=== PATIENT | male | born 1945 | race Two or more races ===

== ENCOUNTER 2025-08-01 08:43 | Emergency (ER) | payer MEDICAID, SELFPAY ==
[2025-08-01 08:44] VITALS: BMI 30.5
[2025-08-01 08:51] VITALS: BP 189/91; PULSE 94; RESP 24; TEMP 36.6; O2SAT 96
--- NOTE | 2025-08-01 09:04 | PD.EDRME ---
Rapid Medical Screening Exam RME Arrival date/time: 08/01/25 08:43 This is a 80 year old with complaints of urinary retention that started around midnight. Pt states he is not been able to urinate and is having lower abdominal pain. Pt has a hx of htn, bph. I have greeted and performed a focused initial assessment of this patient. Initial appropriate labs ordered at this time. A comprehensive ED assessment and evaluation of the patient and analysis of all test and completion of medical decision making process will be conducted by additional ED provider. Chief Complaint: Urogenital-Male Time Seen by Provider: 08/01/25 08:49 Vital signs: Vital Signs Temperature 97.9 F 08/01/25 08:51 Pulse Rate 94 08/01/25 08:51 Respiratory Rate 24 H 08/01/25 08:51 Blood Pressure 189/91 H 08/01/25 08:51 Pulse Oximetry (%) 96 08/01/25 08:51 Oxygen Delivery Method Room Air 08/01/25 08:51
--- NOTE | 2025-08-01 09:19 | PD.EDMALE ---
ED Male Genitalurinary RME/HPI General Chief complaint: Urogenital-Male Stated complaint: UNABLE TO VOID TODAY, LAST VOID AT 2400 Time Seen by Provider: 08/01/25 08:49 Arrival date/time: 08/01/25 08:43 RME / HPI RME / HPI Narrative: 08/01/25 08:43 This is a 80 year old with complaints of urinary retention that started around midnight. Pt states he is not been able to urinate and is having lower abdominal pain. Pt has a hx of htn, bph. I have greeted and performed a focused initial assessment of this patient. Initial appropriate labs ordered at this time. A comprehensive ED assessment and evaluation of the patient and analysis of all test and completion of medical decision making process will be conducted by additional ED provider. --------- See MDM for Dr. Rojas's HPI documentation. Related Data Home Medications ?Medication ?Instructions ?Recorded ?Confirmed doxazosin 4 mg tablet 4 mg PO QDAY 07/14/20 07/07/23 lisinopril 40 mg tablet 40 mg PO QDAY 07/14/20 07/07/23 hydrochlorothiazide 25 mg tablet 25 mg PO QDAY 07/07/23 07/07/23 omeprazole 40 mg capsule,delayed 40 mg PO QDAY 07/07/23 07/07/23 release tamsulosin 0.4 mg capsule 0.4 mg PO QDAY 07/07/23 07/07/23 Allergies Allergy/AdvReac Type Severity Reaction Status Date / Time No Known Allergies Allergy Verified 08/01/25 08:45 Review of Systems Review of Systems Systems Reviewed: All systems reviewed, normal except as documented Past Medical History Past Medical History NEUROLOGIC: Negative Neurological Disorders or Seizures CARDIAC: Positive Hypercholesterolemia and Hypertension; Negative Cardiac Disorders or Congestive Heart Failure RESPIRATORY: Negative Chronic Obstructive Pulmonary Disease (COPD) or Asthma GASTROINTESTINAL: Positive Gall Bladder Disease; Negative Gastrointestinal Disorders GENITOURINARY: Positive Genitourinary Disorders and Benign Prostatic Hyperplasia; Negative Renal Disease MUSCULOSKELETAL: Negative Musculoskeletal Disorders ENT: Positive Cataracts ENDOCRINE: Negative Endocrine Disorders, Diabetes Mellitus Type 1 or Diabetes Mellitus Type 2 HEMATOLOGIC: Negative Blood Disorders or Sickle Cell Disease OTHER HISTORY: Positive Hospitalization, Chicken Pox, Measles and Mumps; Negative Cancer Family History FAMILY HISTORY: Positive Family Cancer Surgical History SURGICAL: Positive Abdominal Surgery Social History SMOKING STATUS: Never smoker SUBSTANCE USE: does not use ED Exam Narrative Physical exam: See [facility] for Dr. Rojas's physical exam documentation. Course Quality Measures none Orders Category Date Time Status Pitts [Urinary Catheter] QS Care 08/01/25 09:02 Active Urinalysis, C/S if Indicated Stat Lab 08/01/25 09:15 Completed Vital Signs Vital signs: Vital Signs Temperature 97.9 F 08/01/25 08:51 Pulse Rate 94 08/01/25 08:51 Respiratory Rate 24 H 08/01/25 08:51 Blood Pressure 189/91 H 08/01/25 08:51 Pulse Oximetry (%) 96 08/01/25 08:51 Oxygen Delivery Method Room Air 08/01/25 08:51 Urogenital - Male [facility] Narrative [facility] Narrative:: This section includes all my notes and documentations, including HPI, PE, and ED course. Ortega Rojas MD HPI: 80yo male with a history of BPH presents to the ED for a chief complaint of being unable to urinate since last night. Patient states he drank a few beers last night and has been unable to urinate since. Patient notes he's also had testicular swelling for the last 6 months, but has not been evaluated by his PCP for it. Denies any testicular pain or any other associated symptoms. He does not follow-up with a urologist. NKA. ROS: All negative except as documented in HPI. Physical Exam: GENERAL APPEARANCE: alert and oriented x 4, well-developed, well-nourished, no acute distress VITALS: All vitals were reviewed and the pulse ox is 96% on room air, which is normal according to my interpretation. HEENT: Normocephalic, atraumatic; pupils equal, round, reactive to light; EOMI; mucous membranes pink, moist; oropharynx clear NECK: Supple LUNGS: CTABL; no wheezes, no rales, no rhonchi HEART: Regular rate, regular rhythm; normal S1, S2; no murmurs ABDOMEN: non distended; normal BS; soft, no tenderness, no guarding : Mild left scrotal enlargement EXTREMITIES: atraumatic; no edema NEUROLOGIC: awake; alert and oriented x4; cranial nerves II-XII grossly intact; no focal sensory or motor deficits PSYCHIATRIC: appropriate mood and affect SKIN: warm, dry, normal color; no rashes I reviewed all diagnostic test results. UA unremarkable. At this point, diagnoses include: acute urinary retention. Significant improvement noted. Patient had 1000cc of urine output. Patient requested the pitts catheter to be removed. Recommended outpatient care. Based on my best medical judgment, made decision no further evaluation or treatment indicated at this time. Patient understands and agrees to the customized discharge instructions and printed, see below. Discharge instructions from Dr. Rojas: Today you were seen in the emergency department for urinary retention. This is what happens when your prostate is enlarged and you are unable to urinate. In the emergency department we placed a Pitts catheter which is a tube that went into your bladder and drained the urine. Studies show that you have a 50-50 chance of having to return to the emergency department if we remove your Pitts catheter before you leave today. After the patient's need to come back and the other half do not. You and I spoke about this and you decided to have the catheter removed. I let you know that there is a good chance that you do not have to come back and you agreed to that. If you feel like you are getting worse again please return to the ER right away and we will help you. You will need to see a specialist call the urologist. Please see your primary care doctor and asked to be sent to a urologist. You should bring these papers with you This Pitts catheter cannot stand longer than 30 days. If you are unable to see a urologist you will need to return to the emergency department within the next month or so to have this removed. Please follow-up with your primary care doctor within the next several days. Patient data External records reviewed:: [facility] previous records (Per chart review, patient was seen here on 08/04/24 for choledocholithiasis.) Clinical information provided by:: patient Social determinants that could affect healthcare access:: none Patient has the following chronic illnesses:: BPH, HTN, HLD How is presenting disease/condition affected by chronic disease/condition?: caused by Evaluation data The following diagnostics were reviewed and interpreted by me:: lab results Lab and/or radiology exams considered but not ordered:: none Interpretation Summary: I reviewed all diagnostic test results. UA unremarkable. Medications / Prescriptions Medications or Prescriptions considered but not ordered:: none Medication administrations:: none Consultations Consultation(s) initiated? (list below): No Diagnosis Urogenital Male Differential Diagnosis: urinary tract infection, epididymitis, prostatitis and acute retention of urine Most likely diagnosis given after review of the tests above:: see clinical impression below Admission Indicated Admission indicated?: not indicated Admission Request Was there a request for admission?: No Disposition Plan Disposition Plan: Discharge Discharge Attestation Discharge Attestation: The patient and all family members were given an opportunity to ask questions and understood the discharge instructions. Discharge instructions specifically effects, indications for sooner follow up or return to the emergency department, and the expected course of current diagnosis. Patient condition: Stable Discharge Plan Plan Patient Disposition: HOME (Self Care) Discharge Disposition comment: Stable for discharge home Patient condition on transfer: Stable Prescriptions/Referrals Prescriptions/Med Rec: No Action doxazosin 4 mg Tablet 4 mg PO QDAY lisinopril 40 mg Tablet 40 mg PO QDAY omeprazole 40 mg Capsule,Delayed Release(Dr/Ec) 40 mg PO QDAY tamsulosin 0.4 mg Capsule 0.4 mg PO QDAY hydrochlorothiazide 25 mg Tablet 25 mg PO QDAY Referrals: Pelon Chaves MD [Primary Care Provider, Family Practice] - In 1 week Problem List Clinical Impression: Acute urinary retention Patient/Caregiver Discharge Instructions Discharge Activity: activity as tolerated Other Activity Instructions:: As tolerated Diet Instructions: No restrictions Education Materials: ED Urinary Retention, Male Additional Instructions: Today you were seen in the emergency department for urinary retention. This is what happens when your prostate is enlarged and you are unable to urinate. In the emergency department we placed a Pitts catheter which is a tube that went into your bladder and drained the urine. Studies show that you have a 50-50 chance of having to return to the emergency department if we remove your Pitts catheter before you leave today. After the patient's need to come back and the other half do not. You and I spoke about this and you decided to have the catheter removed. I let you know that there is a good chance that you do not have to come back and you agreed to that. If you feel like you are getting worse again please return to the ER right away and we will help you. You will need to see a specialist call the urologist. Please see your primary care doctor and asked to be sent to a urologist. You should bring these papers with you This Pitts catheter cannot stand longer than 30 days. If you are unable to see a urologist you will need to return to the emergency department within the next month or so to have this removed. Please follow-up with your primary care doctor within the next several days. Print Language: Bots[place] Stand Alone Forms: [employer] Award Info., Patient Portal Info Letter
[2025-08-01 09:28] LABS: Collection Type, Urine Voided
[2025-08-01 09:51] LABS: Bilirubin,Urine Negative (Negative); Blood,Urine Trace (Negative); Clarity,Urine Clear (Clear/Hazy); Color,Urine Lt-Yellow (Lt Yel-Yel); Culture Indicated,Urine Not Indicated; Glucose, Urine Negative (Negative); Ketones,Urine Negative (Negative); Leukocyte Esterase,Urine Negative (Negative); Nitrite,Urine Negative (Negative); PH,Urine 6.0 (5.0-7.0); Protein,Urine Negative (Neg - Trace); RBC,Urine 2 /hpf (0-3); Specific Gravity,Urine 1.010 (1.001-1.035); Squamous Epithelial Cell,Urine < 1 /hpf (0-5); Urobilinogen,Urine Negative mg/dL (0.0-1.0); WBC,Urine < 1 /hpf (0-5)
--- NOTE | 2025-08-01 10:30 | PC.NURSE ---
PT WANTS FC REMOVE, PT WAS EDUCATED BY DR. AN ON THE IMPORTANCE OF LEAVING ON THE FC AND IF REMOVED THERE IS A 50/50 % CHANCE THAT HE WILL HAVE AGAIN ACUTE URINARY RETENTION. PT STILL ELECTED TO HAVE FC REMOVE.
[2025-08-01 11:14] VITALS: BP 177/86; PULSE 77; RESP 16; TEMP 36.7; O2SAT 97
== END 2025-08-01 11:14 | disposition home or self-care (01) ==
PROVIDERS: Nurse Practitioner Family; Emergency Provider Emergency Medicine; PCP Family Medicine
DX: R33.9 Retention of urine, unspecified (principal)
CPT/HCPCS: 51702; 80053; 81001; 85025; 99284; A4314

== ENCOUNTER 2025-08-11 11:24 | Emergency (ER) | payer MEDICAID, SELFPAY ==
--- NOTE | 2025-08-11 12:09 | EDNOTE_ITS ---
<Statement entered by Edda Singletary MD - 08/30/25 06:08> As co-signing physician, I was present and available for consult prn. I concur with the plan and care as documented by the midlevel provider. ED Male Genitalurinary RME/HPI General Chief complaint: Urogenital-Male Stated complaint: WANTS CATETHER REMOVED Time Seen by Provider: 08/11/25 11:27 Arrival date/time: 08/11/25 11:24 80-year-old male presents to the emergency department today requesting Yip catheter removal Limitations: no limitations Related Data Home Medications ?Medication ?Instructions ?Recorded ?Confirmed doxazosin 4 mg tablet 4 mg PO QDAY 07/14/20 lisinopril 40 mg tablet 40 mg PO QDAY 07/14/2007/07 hydrochlorothiazide 25 mg tablet 25 mg PO QDAY 3 07/07/23 omeprazole 40 mg capsule,delayed 40 mg PO QDAY 3 07/07/23 release tamsulosin 0.4 mg capsule 0.4 mg PO QDAY 07/07/2306/25 Allergies Allergy/AdvReac Type Severity Reaction Status Date / Time No Known Allergies Allergy Verified 08/01/25 15:49 Review of Systems Review of Systems Systems Reviewed: All systems reviewed, normal except as documented Constitutional Constitutional: Reports system reviewed and no additional complaints, except as documented, Denies fever(s) and Denies headache(s) Eyes Eyes: Reports system reviewed and no additional complaints, except as documented and Denies blurry vision ENT Ears, Nose, Mouth, and Throat: Reports system reviewed and no additional complaints, except as documented, Denies headache(s), Denies nasal congestion and Denies nasal discharge Cardiovascular Cardiovascular: Reports system reviewed and no additional complaints, except as documented, Denies chest pain and Denies dyspnea Respiratory Respiratory: Reports system reviewed and no additional complaints, except as documented, Denies chest congestion, Denies cough and Denies dyspnea Gastrointestinal Gastrointestinal: Reports system reviewed and no additional complaints, except as documented and Denies abdominal pain Genitourinary Genitourinary: Reports system reviewed and no additional complaints, except as documented and Reports other (Yip catheter in place) Integumentary/Breasts Skin/Breast: Reports system reviewed and no additional complaints, except as documented and Denies rash Neurologic Neurologic: Reports system reviewed and no additional complaints, except as documented, Reports as per HPI and Denies headache(s) Past Medical History Past Medical History NEUROLOGIC: Negative Neurological Disorders or Seizures CARDIAC: Positive Hypercholesterolemia and Hypertension; Negative Cardiac Disorders or Congestive Heart Failure RESPIRATORY: Negative Chronic Obstructive Pulmonary Disease (COPD) or Asthma GASTROINTESTINAL: Positive Gall Bladder Disease; Negative Gastrointestinal Disorders GENITOURINARY: Positive Genitourinary Disorders and Benign Prostatic Hyperplasia; Negative Renal Disease MUSCULOSKELETAL: Negative Musculoskeletal Disorders ENT: Positive Cataracts ENDOCRINE: Negative Endocrine Disorders, Diabetes Mellitus Type 1 or Diabetes Mellitus Type 2 HEMATOLOGIC: Negative Blood Disorders or Sickle Cell Disease OTHER HISTORY: Positive Hospitalization, Chicken Pox, Measles and Mumps; Negative Cancer Family History FAMILY HISTORY: Positive Family Cancer Surgical History SURGICAL: Positive Abdominal Surgery Social History SMOKING STATUS: Never smoker SUBSTANCE USE: does not use ED Exam General Limitations: Present no limitations General appearance: Present alert and in no apparent distress Head Head exam: Present atraumatic Eye Eye exam: Present normal appearance, PERRL and EOMI ENT ENT exam: Present normal exam, normal oropharynx and mucous membranes moist Neck Neck exam: Present normal inspection, full ROM and trachea midline Chest Chest inspection: Present normal inspection and symmetric chest wall rise Respiratory Respiratory exam: Present normal lung sounds bilaterally Cardiovascular Cardiovascular exam: Present regular rate, normal rhythm and normal heart sounds Abdominal Exam Abdominal exam: Present soft and normal bowel sounds; Absent distention or tenderness exam: Present other (Yip catheter in place) Extremities Exam Extremities exam: Present full ROM and other (Yip catheter in place) Back Exam Back exam: Present normal inspection and full ROM Neurological Exam Neurological exam: Present alert, oriented X3 and CN II-XII intact Psychiatric Psychiatric exam: Present normal affect and normal mood Skin Skin exam: Present warm, dry, intact and normal color Course Quality Measures none Orders Category Date Time Status Yip [Urinary Catheter, Remove] NOW Care 08/11/25 12:09 Completed Vital Signs Vital signs: Vital Signs Temperature 98.1 F 08/11/25 12:12 Pulse Rate 95 08/11/25 12:12 Respiratory Rate 16 08/11/25 12:12 Blood Pressure 159/87 H 08/11/25 12:12 Pulse Oximetry (%) 95 08/11/25 12:12 Oxygen Delivery Method Room Air 08/11/25 12:12 O2 saturation 95% room air within the limits Urogenital - Male MDM Narrative MDM Narrative:: 80-year-old male presents to the emergency department today requesting Yip catheter removal Per patient's request Yip catheter removed Patient discharged home in no distress to follow-up with primary care doctor in the next 24 to 48 hours and for any worsening symptoms to return to the ER immediately Patient data External records reviewed:: [facility] previous records Clinical information provided by:: patient Social determinants that could affect healthcare access:: none Patient has the following chronic illnesses:: See history How is presenting disease/condition affected by chronic disease/condition?: caused by Evaluation data The following diagnostics were reviewed and interpreted by me:: other (specify) Lab and/or radiology exams considered but not ordered:: Considered not indicated Interpretation Summary: N/A Medications / Prescriptions Medications or Prescriptions considered but not ordered:: No meds Medication administrations:: No Meds Consultations Consultation(s) initiated? (list below): No Diagnosis Urogenital Male Differential Diagnosis: urinary tract infection, urethritis, epididymitis, genital herpes simplex and inguinal hernia Most likely diagnosis given after review of the tests above:: Yip cath removal Admission Indicated Admission indicated?: not indicated Admission Request Was there a request for admission?: No Disposition Plan Disposition Plan: Discharge Discharge Attestation Discharge Attestation: The patient and all family members were given an opportunity to ask questions and understood the discharge instructions. Discharge instructions specifically effects, indications for sooner follow up or return to the emergency department, and the expected course of current diagnosis. Patient condition: Stable Discharge Plan Plan Patient Disposition: HOME (Self Care) Discharge Disposition comment: Stable Prescriptions/Referrals Prescriptions/Med Rec: No Action doxazosin 4 mg Tablet 4 mg PO QDAY lisinopril 40 mg Tablet 40 mg PO QDAY omeprazole 40 mg Capsule,Delayed Release(Dr/Ec) 40 mg PO QDAY tamsulosin 0.4 mg Capsule 0.4 mg PO QDAY hydrochlorothiazide 25 mg Tablet 25 mg PO QDAY Problem List Clinical Impression: Encounter for Yip catheter removal Patient/Caregiver Discharge Instructions Additional Instructions: Please follow up with your primary care doctor in the next 24-48hrs for any worsening symptoms return here immediately If you cannot urinate within next 6 to 8 hours you must return for replacement of your Yip catheter Print Language: Russian Stand Alone Forms: Milena Award Info., Patient Portal Info Letter PA/HYSTER MACHINE OPERATOR Supervising Physician PA/HYSTER MACHINE OPERATOR Supervising Physician: Dr. singletary
[2025-08-11 12:12] VITALS: BP 159/87; PULSE 95; RESP 16; TEMP 36.7; O2SAT 95; BMI 33.3
== END 2025-08-11 12:17 | disposition home or self-care (01) ==
LOC: SERX 12:28
PROVIDERS: Emergency Provider Nurse Practitioner Primary Care; PCP Obstetrics & Gynecology
DX: Z46.6 Encounter for fitting and adjustment of urinary device (principal)
CPT/HCPCS: 99283

== ENCOUNTER 2025-09-08 08:05 | Emergency (ER) | payer MEDICAID, SELFPAY ==
[2025-09-08] VITALS (14 sets, daily range): BP systolic 90–172; BP diastolic 49–96; PULSE 95–141; RESP 18–30; TEMP 36.8–39.6; O2SAT 93–99
--- NOTE | 2025-09-08 | XR_ITS ---
EXAMINATION: MRCP Date and time: September 08, 2025, 1641 hours, comparison 08/04/2024 INDICATIONS: History extrahepatic biliary duct dilatation with multiple common bile duct stones on MRCP 08/04/2024, fever chills and body aches, clinical diagnosis cholangitis Technique and findings: Multiple coronal and axial abdomen images and 3D reconstruction images of the biliary tree Intrahepatic biliary tract dilatation Gallbladder not visualized Abnormal enlargement common bile duct 11 mm 3 mm 1 mm stones in the common hepatic duct Meniscus defect, 10 mm impacted stone in the distal common bile duct Negative for pancreatitis Minimal perinephric stranding Spleen not enlarged IMPRESSION: 3. Millimeter 1 mm stones in the common hepatic duct 10 mm impacted stone in the enlarged distal common bile duct Recommend ERCP follow-up
--- NOTE | 2025-09-08 08:09 | XR_ITS ---
EXAMINATION: PA lateral chest 2 views TECHNIQUE: PA and lateral chest 2 views Date and time: September 08, 2025, 0809 hours, comparison August 04, 2024 INDICATIONS: Coughing fever chills today FINDINGS: Early pneumonia left base. Normal heart size Moderate osteopenia IMPRESSION: Early pneumonia left base
[2025-09-08] MEDS: ACETAMINOPHEN 500 MG TABLET 1000 MG PO (08:30)
--- NOTE | 2025-09-08 08:37 | EKG_ITS ---
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[id number] Requested By: Javier Hoffman Order Number: [id number] Reading MD: Javier Hoffman Measurements Intervals [place] Rate: 133 P: 39 VT: 143 QRS: 268 QRSD: 126 T: 34 QT: 311 QTc: 464 Interpretive Statements SINUS TACHYCARDIA POSSIBLE RIGHT VENTRICULAR HYPERTROPHY [SOME/ALL OF: PROMINENT R IN V1, LATE TRANSITION, RAD, ERNA, SSS] NONSPECIFIC ST ELEVATION [0.05+ mV ST ELEVATION] Compared to ECG 07/12/2023 10:38:48 ST (T wave) deviation now present Sinus rhythm no longer present Right bundle-branch block no longer present Left anterior fascicular block no longer present /store/S0/[id number]
--- NOTE | 2025-09-08 08:37 | PD.EDADULT ---
ED General RME/HPI General Chief complaint: Flu Like Symptoms Stated complaint: FEVER, CHILLS, BODYACHES Time Seen by Provider: 09/08/25 08:36 Arrival date/time: 09/08/25 08:05 RME / HPI RME / HPI narrative: Seth is a 80 y/o male with PMHx ? BPH, HTN, HLD, and choledocholithiasis who comes in for evaluation of fever and chills with associated body aches, onset yesterday around 6pm, not relieved with OTC, has never happened to him before. Patient reports he is is acute onset of symptoms and decided to come to get evaluated the emergency room. He does not report shortness of breath this time, however reports a fever. He says that he got his flu vaccine this year in addition to previous COVID vaccines (3). No one around him is feeling at this. He denies any recent travel or recent sick contacts. He does not have a instrument installer. He has a primary care doctor with someone with the name of [place] [address]. He says he was recently seen in the ER for prostate issues last month, however he says does not have an enlarged prostate and did not see a urologist. He does not have a indwelling Yip catheter. He denies any dysuria. He had an appendectomy and cholecystectomy before. Has worked in the [employer] before, however no history of valley fever. No one in his family has had valley fever according to him. No smoking, has not drink in years, and no history of oral IV drug use. Related Data Home Medications ?Medication ?Instructions ?Recorded ?Confirmed lisinopril 40 mg tablet 40 mg PO QDAY 07/14/20 09/08/25 tamsulosin 0.4 mg capsule 0.4 mg PO QDAY 07/07/23 09/08/25 celecoxib 100 mg capsule 100 mg feeding tube Q24H 09/08/25 09/08/25 rosuvastatin 40 mg tablet 40 mg PO DAILY 09/08/25 09/08/25 Allergies Allergy/AdvReac Type Severity Reaction Status Date / Time No Known Allergies Allergy Verified 09/08/25 08:08 Review of Systems Review of Systems Narrative Review of Systems: 12 point ROS reviewed and is otherwise negative unless stated directly in the HPI ED Exam Narrative Physical exam: General: AAOx3, NAD, HEENT: Moist mucous membranes, conjunctiva clear, EOMI, PERRLA, Cardiovascular: S1, S2, radial pulses +2 bilat, RRR Pulmonary: CTAB bilat no cough, no wheezing GI: No tenderness to light or deep palpitation, no guarding, rigidity, rebound tenderness or distension Extremities: No presence of trace or pitting edema in lower extremities bilaterally, dorsalis pedis pulses +2 bilaterally Neuro: AAOx3, no focal motor or sensory deficits in the UE or LE bilat Psych: Good judgement, thought and behavior Course Quality Measures none Orders Category Date Time Status Bedside COVID-19 Antigen Test NOW Care 09/08/25 08:09 Active Bladder Scan NEEDED Care 09/08/25 09:00 Active EKG (ED ONLY) *Do not use* NOW Care 09/08/25 08:37 Completed MRI Screening NOW Care 09/08/25 15:51 Active Referral - Windows And Doors Installer Stat Cons 09/08/25 17:[address] abdomen pelvis wo con Stat Exams 09/08/25 09:[address] head/brain wo con Stat Exams 09/08/25 09:58 Completed EKG (ED Only) Stat Exams 09/08/25 08:37 Draft MR MRCP Stat Exams 09/08/25 Completed US gall bladder Stat Exams 09/08/25 13:01 Completed XR chest 2V Stat Exams 09/08/25 08:09 Completed Blood Culture (Lab) Stat Lab 09/08/25 08:59 Received CBC Stat Lab 09/08/25 08:59 Completed Cocci Serology IgM with reflex to IgG [Cocci Serology, Lab 09/08/25 08:59 Results Unk History] Stat Comprehensive Metabolic Panel Stat Lab 09/08/25 08:59 Completed Drug Screen,Urine Stat Lab 09/08/25 09:07 Completed FLU A&B [Influenza A & B Rapid Panel] Stat Lab 09/08/25 08:24 Completed Lactate (Lactic Acid) Stat Lab 09/08/25 08:59 Completed Lactic Acid [Lactate (Lactic Acid)] Stat Lab 09/08/25 12:10 Completed Lipase Stat Lab 09/08/25 12:10 Completed Procalcitonin Stat Lab 09/08/25 08:59 Completed RSV [Respiratory Syncytial Virus Ag] Stat Lab 09/08/25 09:33 Completed Urinalysis, C/S if Indicated Stat Lab 09/08/25 09:05 Completed Urine Culture Stat Lab 09/08/25 09:05 Received Acetaminophen Ivpb [Ofirmev Inj] Med 09/08/25 09:31 Discontinued 1,000 mg in 100 ml IV X1 Acetaminophen Tab [Tylenol ES Tab] Med 09/08/25 08:20 Discontinued 1,000 mg PO X1 ONE Acetaminophen Tab [Tylenol Tab] Med 09/08/25 09:24 Discontinued 1,000 mg PO X1 ONE Ketorolac Inj [Toradol Inj] Med 09/08/25 09:24 Discontinued 30 mg IVP X1 ONE Piper/Tazo Inj [Zosyn Inj] 4.5 gm Med 09/08/25 16:09 Discontinued Sodium Chloride 0.9% (Pop) [NS 0.9% mini bag] 100 ml IV X1 Ringers Lactated 1000 ml [Lactated Ringers] 1,000 ml Med 09/08/25 08:58 Discontinued IV 999 mls/hr Ringers Lactated 1000 ml [Lactated Ringers] 1,000 ml Med 09/08/25 09:17 Discontinued IV 999 mls/hr Sodium Chloride 0.9% 500 ml [Ns] 500 ml Med 09/08/25 12:02 Discontinued IV 999 mls/hr Sodium Chloride 0.9% 500 ml [Ns] 500 ml Med 09/08/25 14:20 Discontinued IV 999 mls/hr cefTRIAXone [Rocephin] 2 gm Med 09/08/25 09:16 Discontinued SODIUM CHLORIDE 0.9% (Popper) [Ns 0.9% (P)] 50 ml IV X1 cefTRIAXone/D5w 1gm IV premix [Rocephin/D5w 1gm IV Med 09/08/25 09:01 Discontinued premix] 1 gm in 50 ml IV X1 Vital Signs Vital signs: Vital Signs Temperature 103.2 F H 09/08/25 08:18 Pulse Rate 141 H 09/08/25 08:18 Respiratory Rate 22 H 09/08/25 08:18 Blood Pressure 172/96 H 09/08/25 08:18 Pulse Oximetry (%) 99 09/08/25 08:18 Oxygen Delivery Method Room Air 09/08/25 08:18 Discharge Plan Plan Patient Disposition: [facility] Facility Pt Being Transferred to: [facility] Service Needed for Transfer: Gastroenterology Discharge Disposition comment: ERCP Prescriptions/Referrals Prescriptions/Med Rec: No Action lisinopril 40 mg Tablet 40 mg PO QDAY celecoxib 100 mg capsule 100 mg feeding tube Q24H Patient Comments: TOME 1 CAPSULA POR VIA ORAL TODOS [place] FOR 90 DAYS rosuvastatin 40 mg tablet 40 mg PO DAILY Patient Comments: TOME 1 TABLETA POR VIA ORAL TODOS [place] tamsulosin 0.4 mg Capsule 0.4 mg PO QDAY Referrals: Pelon Chaves MD [Primary Care Provider, Family Practice] - In 1 week Problem List Clinical Impression: Acute cholangitis due to calculus of bile duct with obstruction Patient/Caregiver Discharge Instructions Print Language: English Stand Alone Forms: Milena Award Info., Patient Portal Info Letter MD Attestation Attestation I, Dr. Wong, have reviewed the history, exam, and assessment of the patient. I have evaluated the patient independently and agree with the plan of care documented by Dr. Hoffman. All diagnostic studies were reviewed and discussed. I confirm the diagnosis as documented by the Resident. I was present during the Medical Decision Making for this patient. The patient's plan of care was created between myself and the Resident and consistent with our discussion of the patient's case. MDM Narrative MDM hospital course (for use when minimal MDM required): 0856: Will follow up influenza, RSV and COVID. 1 L LR bolus, will follow up labs. Ordered IgM cocci. Yip cath inserted. 1000: Abd/pelvis CT and head CT. Tylenol 1 gram IV x1, UA shows pyuria, and LE. Ordered additional 1L LR bolus. 2 g Rocephin x1. Toradol 30 mg IV x1 1400: Ordered US gallbladder for concern with CBD 0.9cm. Ordered additional 1 L NS. 1530: US gallbladder shows pneumobilia, 0.8cm. Called hospitalist team, they will discuss and review case for admission. 1600: Spoke with GI, Dr. Messina, recommends MRCP at this time before admission. Zosyn 4.5 mg IV x1 1745: After review of MRCP, shows 10mm impacted stone in distal CBD, and stone in hepatic duct as well recommending ERCP. Will initiate transfer now. 1800: Case passed down to ED Provider, Dr. Wallace. Medication Administration(s) Medication Administration History Discontinued Medications Acetaminophen (Acetaminophen 500 Mg Tablet) 1,000 mg PO X1 ONE Stop: 09/08/25 08:21 Last Admin: 09/08/25 08:30 Dose: 1,000 mg Documented By: BY Acetaminophen (Acetaminophen 325 Mg Tablet) 1,000 mg PO X1 ONE Stop: 09/08/25 09:25 Last Admin: 09/08/25 10:30 Dose: Not Given Documented By: BY Non-Admin Reason: Cancelled by Provider Lactated Ringer's (Lactated Ringers) 1,000 mls @ 999 mls/hr IV .Q1H1M ONE Stop: 09/08/25 09:58 Last Infusion: 09/08/25 10:28 Dose: Infused Documented By: Admin: 09/08/25 09:23 Dose: 999 mls/hr Documented By: BY Ceftriaxone Sodium/Dextrose (Rocephin/D5w 1gm Iv Premix) 1 gm in 50 mls @ 100 mls/hr IV X1 ONE Stop: 09/08/25 09:30 Last Admin: 09/08/25 10:29 Dose: Not Given Documented By: BY Non-Admin Reason: Cancelled by Provider Ceftriaxone Sodium 2 gm/ (Sodium Chloride) 50 mls @ 100 mls/hr IV X1 ONE Stop: 09/08/25 09:45 Last Infusion: 09/08/25 10:12 Dose: Infused Documented By: Admin: 09/08/25 09:27 Dose: 100 mls/hr Documented By: BY Lactated Ringer's (Lactated Ringers) 1,000 mls @ 999 mls/hr IV .Q1H1M ONE Stop: 09/08/25 10:17 Last Infusion: 09/08/25 11:25 Dose: Infused Documented By: Admin: 09/08/25 10:23 Dose: 999 mls/hr Documented By: BY Acetaminophen (Ofirmev Inj) 1,000 mg in 100 mls @ 250 mls/hr IV X1 ONE Stop: 09/08/25 09:54 Last Infusion: 09/08/25 10:12 Dose: Infused Documented By: Admin: 09/08/25 09:46 Dose: 250 mls/hr Documented By: BY Sodium Chloride (Ns) 500 mls @ 999 mls/hr IV .Q31M ONE Stop: 09/08/25 12:32 Last Infusion: 09/08/25 13:10 Dose: Infused Documented By: Admin: 09/08/25 12:38 Dose: 999 mls/hr Documented By: BY Sodium Chloride (Ns) 500 mls @ 999 mls/hr IV .Q31M ONE Stop: 09/08/25 14:50 Last Infusion: 09/08/25 14:55 Dose: Infused Documented By: Admin: 09/08/25 14:22 Dose: 999 mls/hr Documented By: BY Piperacillin Sod/Tazobactam (Sod 4.5 gm/ Sodium Chloride) 100 mls @ 200 mls/hr IV X1 ONE; Protocol Stop: 09/08/25 16:38 Last Admin: 09/08/25 16:20 Dose: 200 mls/hr Documented By: BY Ketorolac Tromethamine (Ketorolac Inj 30 Mg/Ml Vial) 30 mg IVP X1 ONE Stop: 09/08/25 09:25 Last Admin: 09/08/25 09:40 Dose: 30 mg Documented By: BY Consultations/Discussions re: Management Consult #1: Date/time: 09/08/25 3:39 pm Physician, specialty, service, details: Called hospitalist team, they will discuss and review case for admission. Consult #2: Date/time: 09/08/25 4:44 pm Physician, specialty, service, details: 1600: Spoke with GI, Dr. Messina, recommends MRCP at this time before admission. Diagnosis Diagnoses ruled out and/or further discussions: Sepsis, cholangitis
[2025-09-08 08:57] LABS: Influenza A Ag Negative; Influenza B Ag Negative
[2025-09-08 09:06] LABS: Lactate (Lactic Acid) 2.8 mMol/L (0.4-2.0)
[2025-09-08 09:09] LABS: Basophils # (Auto) 0.0 Thou/mm3 (0.0-0.2); Basophils % (Auto) 0 % (0-2.5); Eosinophils # (Auto) 0.0 Thou/mm3 (0.0-0.5); Eosinophils % (Auto) 0 % (0-10); Hematocrit 40.1 % (41.0-53.0); Hemoglobin 13.3 g/dL (13.5-16.0); Immature Granulocytes Auto 0.04 Thou/mm3 (0.00-0.00); Lymphocytes # (Auto) 0.4 Thou/mm3 (1.0-4.8); Lymphocytes % (Auto) 5 % (10-50); Mean Corpuscular HGB Conc 33.2 g/dl (31.0-37.0); Mean Corpuscular Hemoglobin 28.9 pg (25.0-35.0); Mean Corpuscular Volume 87 fL (80-100); Monocytes # (Auto) 0.1 Thou/mm3 (0.0-0.8); Monocytes % (Auto) 1 % (0-12); Neutrophils # (Auto) 8.5 Thou/mm3 (1.8-7.7); Neutrophils % (Auto) 94 % (37-80); Nucleated Red Blood Cell # 0.00 Thou/mm3 (0.00-0.00); Nucleated Red Blood Cell % 0 /100 WBC (0); Platelet Count 100 Thou/mm3 (140-440); RDW Standard Deviation 44.3 fL (35.1-43.9); Red Blood Count 4.61 Miln/mm3 (4.50-5.90); White Blood Count 9.1 Thou/mm3 (3.8-10.6)
[2025-09-08 09:23] LABS: Collection Type, Urine Clean Catch
[2025-09-08] MEDS: RINGERS LACTATED 1000 ML 1,000 ML 999 ML IV ×2 (09:23→10:23)
[2025-09-08] MEDS: cefTRIAXone 2 GM in SODIUM CHLORIDE 0.9% (Popper) 50 ML IV (09:27)
[2025-09-08 09:34] LABS: Alanine Aminotransferase 58 U/L (10-49); Albumin, Serum 4.2 gm/dL (3.4-4.8); Albumin/Globulin Ratio 1.8 (1.2-2.2); Alkaline Phosphatase 59 U/L (46-116); Anion Gap 12 (7-16); Aspartate Amino Transferase 53 U/L (0-34); BUN/Creatinine Ratio 14 Ratio (12-20); Bilirubin,Total 1.3 mg/dL (0.3-1.2); Blood Urea Nitrogen 14 mg/dL (9-23); Calcium 9.1 mg/dL (8.3-10.6); Calcium (Corrected) 9.1 mg/dL (8.5-10.1); Carbon Dioxide 24.6 mMol/L (20.0-31.0); Chloride 107 mMol/L (98-107); Creatinine (Component) 1.0 mg/dL (0.6-1.3); Globulin 2.3 gm/dL (2.3-3.5); Glucose 179 mg/dL (74-106); Osmolality,Calculated 291 (275-295); Potassium 3.8 mMol/L (3.4-5.1); Procalcitonin 0.66 ng/ml (0.0-0.49); Sodium 144 mMol/L (136-145); Total Protein 6.5 gm/dL (5.7-8.2); eGFR > 60 See Note
[2025-09-08 09:37] LABS: Bacteria,Urine 1+; Bilirubin,Urine Negative (Negative); Blood,Urine 2+ (Negative); Color,Urine Yellow (Lt Yel-Yel); Glucose, Urine Negative (Negative); Hyaline Casts,Urine < 1 /hpf (0-1); Ketones,Urine 1+ (Negative); Leukocyte Esterase,Urine Positive (Negative); Nitrite,Urine Negative (Negative); PH,Urine 6.5 (5.0-7.0); Protein,Urine 1+ (Neg - Trace); RBC,Urine 22 /hpf (0-3); Specific Gravity,Urine 1.021 (1.001-1.035); Squamous Epithelial Cell,Urine < 1 /hpf (0-5); Urobilinogen,Urine Negative mg/dL (0.0-1.0); WBC,Urine 79 /hpf (0-5)
[2025-09-08 09:37] LABS: Amphetamine/Methamp Scrn,U Negative (Negative); Barbiturate Screen,Urine Negative (Negative); Benzodiazepines Screen,Urine Negative (Negative); Benzoylecgonine Screen, Ur Negative (Negative); Fentanyl Screen,Urine Negative (Negative); Opiate Screen,Urine Negative (Negative); THC Screen,Urine Negative (Negative)
[2025-09-08] MEDS: KETOROLAC INJ 30 MG/ML VIAL IVP (09:40)
[2025-09-08] MEDS: ACETAMINOPHEN IVPB 1,000 MG/100 ML VIAL 250 MG IV ×2 (09:46→20:31)
[2025-09-08 09:50] LABS: Clarity,Urine Hazy (Clear/Hazy); Culture Indicated,Urine Yes
--- NOTE | 2025-09-08 09:58 | XR_ITS ---
Examination: CT abdomen and pelvis without contrast. Coronal 3-D reconstructions. Sagittal 2-D reconstructions. Date and time of exam: September 08, 2025, 11:10 a.m. INDICATIONS: Altered mental status today, abdominal pain and benign prostatic hypertrophy diagnosis CTDI: vol (mGy): 9.07 DLP: (mGycm): 625 Technique: Axial images of the abdomen have been obtained, 3 mm slice thickness Intravenous contrast material has not been administered. Low dose protocols were performed. One or more of the following dose reduction techniques were used; automated exposure control, adjustment of the mA and/or KV according to patient size, use of iterative reconstruction technique. Findings: Pneumonia left base Pneumobilia Liver is irregular in contour Gallbladder is not visualized Spleen is not enlarged Common bile duct 9 mm no common bile duct stones Perinephric stranding No renal or ureteral calculi, no hydronephrosis Aorta normal size Normal appendix No bowel obstruction Fat-containing left inguinal hernia Normal seminal vesicles Transverse prostate dimension 5.6 cm, urinary Yip catheter noted Moderate osteopenia IMPRESSION: Pneumonia left base Pneumobilia, common bile duct 9 mm, recommend about a biliary sonography follow-up No renal or ureteral calculi Normal appendix Fat-containing left inguinal hernia Moderate prostatomegaly
--- NOTE | 2025-09-08 09:58 | XR_ITS ---
Examination: CT brain head without contrast. 2-D sagittal coronal reconstructions Date and time of exam: 09/08/2025, 11:05 a.m. INDICATION: Mental status changes COMPARISON: 03/28/2022 CTDI: vol (mGy): 58.5 DLP: (mGycm): 1271 Technique: Multiple CT axial sections of the brain have been obtained, 5 mm slice thickness. Contrast has not been administered. 2-D sagittal, coronal reconstructions have been obtained Low dose protocols were performed. One or more of the following dose reduction techniques were used; automated exposure control, adjustment of the mA and/or KV according to patient size, use of iterative reconstruction technique. Findings: Moderate cortical atrophy with associated ventricular and extra-axial enlargement. Intra-axial or extra-axial hemorrhage density is not seen. No mass effect or midline shift Basal cisterns are not remarkable. Fourth ventricle is midline. Cranial vault intact. Impression: Negative for acute hemorrhage, mass effect or midline shift. Chronic changes as above.
--- NOTE | 2025-09-08 09:58 | PC.NURSE ---
patient was noted to be very confussed and attemmpting to get out of bed, was also noted to have slight drooping to right lip, family unsure if that was new, Md notified of these concerns and assesed patient
[2025-09-08 12:04] LABS: Reflex Lactate? Y
[2025-09-08 12:17] LABS: Lactate (Lactic Acid) 1.6 mMol/L (0.4-2.0)
[2025-09-08] MEDS: SODIUM CHLORIDE 0.9% 500 ML 500 ML 999 ML IV ×2 (12:38→14:22)
[2025-09-08 12:41] LABS: Cocci Serology, IgM Negative (Negative)
--- NOTE | 2025-09-08 13:01 | XR_ITS ---
Examination: Abdomen sonogram, Limited Date and time of exam: September 08, 2025, 1334 hours INDICATIONS: Abdominal pain and distention today, enlarged common bile duct on CT examination abdomen today Technique: Real-time haines scale transabdominal sonographic images of the upper abdomen obtained. Findings: Absent gallbladder Common bile duct 0.8 cm no stones Liver 14.7 cm fatty infiltration Normal hepatopetal portal venous flow Patent IVC IMPRESSION: Common bile duct 0.8 cm no common bile duct stones
--- NOTE | 2025-09-08 14:25 | PC.NURSE ---
patient noted to have systolic in the 90 md notified and new orders recieved
[2025-09-08 16:11] LABS: Lipase 18 U/L (12-53)
[2025-09-08] MEDS: PIPER/TAZO INJ 4.5 GM in SODIUM CHLORIDE 0.9% (POP) 100 ML IV (16:20)
[2025-09-08 16:27] LABS: Respiratory Syncytial Virus Ag Negative (Negative)
--- NOTE | 2025-09-08 18:03 | PC.CC ---
Addendum entered by Danay Pabon RN 09/08/25 19:21: 1910: Transport set for 2030 pick up worker. Transfer packet w/ 1 CD handed to battery charger tester Sal. Addendum entered by Danay Pabon RN 09/08/25 19:01: 1905: Transfer packet W/ 1 CD taken to ED 1856: canceled transfer request with [facility] 185: Canceled transfer request with [facility] 185: [facility] ED [facility] ED[facility] Call report to [phone]. Addendum entered by Danay Pabon RN 09/08/25 18:23: 181: Per Dr. Hoffman, pt had a previous ERCP at [facility] and requesting pt goes back to [facility]. 1814: initiated transfer request with [facility]. Per Efren, nurse will review clinicals and call back. 1813: initiated transfer request with [facility]. Per Hamida, she will review clinicals and call back 180: initiated transfer request with [facility]. Per Ari nurse will review clinicals and call back. Original Note: 1753: Received call from Dr. Hoffman for transfer for GI for ERCP. Clinicals sent to [facility], [facility]
[2025-09-08] MEDS: ACETAMINOPHEN 325 MG TABLET 650 MG PO (18:33)
--- NOTE | 2025-09-08 18:51 | EDNOTE_ITS ---
Emergency Room Addendum Addendum Narrative: 1800: Care assumed from Dr. Hoffman, attending Dr. Wong, the previous shift emergency physician. Past medical, surgical, social and family history reviewed. Vitals and home medications reviewed. Results and treatment plan discussed. I will assume the care of the patient at this time and will follow the patient, pending transfer for ERCP. Please refer to the emergency department record for history and examination. 1851: Discussed case with PELON Giordano from [facility] [address] regarding transfer. Discussed patients ED course, exam findings, labs, and radiology results. Accepts the patient for transfer.
[2025-09-08] MEDS: MORPHINE SULF INJ 4 MG/ML VIAL IVP ×2 (18:56→19:49)
[2025-09-08] MEDS: KETOROLAC INJ 30 MG/ML VIAL 15 MG IVP (19:41)
--- NOTE | 2025-09-08 20:48 | PC.NURSE ---
called report spoke to Radha RIDDLE
[2025-09-09 12:48] LABS: Cocci Serology, IgG Negative (Negative)
== END 2025-09-08 20:43 | disposition short-term general hospital (02) ==
PROVIDERS: Nurse Practitioner Primary Care; PCP Family Medicine
DX: R50.9 Fever, unspecified (principal)
CPT/HCPCS: 36415; 70450; 71046; 74176; 74181; 76705; 80053; 80307; 81001; 83605; 83690; 84145; 85025; 86331; 86635; 87040; 87077; 87086; 87186; 87502; 87634; 87811; 93005; 96361; 96365; 96375; 96376; 99283; J0131; J0696; J1885; J2270; J2543; J7050; J7120; J7999; A9270